=== PATIENT | female | born 2000 | race Caucasian/White ===

== ENCOUNTER 2023-01-05 13:19 | Inpatient (IN) ==
[2023-01-05 14:21] LABS: Basophils # (auto) 0.04 K/uL (0-0.2); Basophils % (auto) 0.4 %; Eosinophils % (auto) 0.9 %; Hematocrit (blood only) 36.6 % (37.0-47.0); Hemoglobin 12.2 g/dl (12.0-16.0); Immature Granulocytes # (auto) 0.05 K/uL (0.01-0.20); Immature Granulocytes % (auto) 0.4 %; Lymphocytes # (auto) 3.18 K/uL (1.2-3.4); Lymphocytes % (auto) 28.4 %; Mean Corpuscular Hemoglobin 27.9 pg (25.0-34.0); Mean Corpuscular Hgb Conc 33.3 g/dL (32.0-36.0); Mean Corpuscular Volume 83.8 fL (80.0-100.0); Mean Platelet Volume 9.9 fL (9.4-12.4); Monocytes # (auto) 0.75 K/uL (0.11-0.59); Monocytes % (auto) 6.7 %; Neutrophils # (auto) 7.08 K/uL (1.40-6.50); Neutrophils % (auto) 63.2 %; Platelet Count 431 K/uL (130-400); RDW Standard Deviation 43.3 fL (36.4-46.3); Red Blood Count 4.37 M/uL (4.20-5.40)
[2023-01-05 14:33] LABS: Albumin Level 4.4 gm/dl (3.4-5.0); Bilirubin,Total 0.4 mg/dl (0.2-1.0); Calcium 9.2 mg/dl (8.6-10.3); Potassium 3.7 mmol/L (3.5-5.1)
[2023-01-05 14:38] LABS: Acetaminophen < 3 ug/ml (10-30); Salicylate < 3.0 mg/dl (3.0-30)
[2023-01-05 14:39] LABS: Albumin Globulin Ratio 1.6 (0.9-2); BUN Creatinine Ratio 10.6 (10-20); Creatinine Clr Calc Pharmacy 123.4 ml/min; Est GFR (African American) 147.4 ml/min; Est GFR (Non-African American) 127.2 ml/min; Globulin 2.8 gm/dl (2.5-4.0); Total Protein 7.2 gm/dl (6.0-8.3)
--- NOTE | 2023-01-05 14:46 | Emergency Department Note ---
History of Present Illness General Chief complaint: Mental Health Evaluation Stated complaint: MHE Time Seen by Provider: 01/05/23 13:48 Source: patient and family (Mother at bedside) History of Present Illness Provider complaint: Mental health evaluation 22-year-old female presents emergency department for mental health evaluation. Patient states she suffers from depression and anxiety. Patient states she has been increasing depressed and having suicidal ideation. Patient states she has been having problems with her roommate and academic problems. Patient states she has been having increased panic attacks. Patient reports she is also sad about her grandfather being sick in the hospital. Patient states she has been thinking of killing yourself and thought about doing it the other day by driving her car off the road but then did not. Patient reports no drugs or alcohol. Patient states she is not sure if she was . Patient states she is not on any psychiatric medications at this time and has never been hospitalized for any psychiatric conditions. No access to any firearms. Home Medications Medication Instructions Recorded Confirmed Type norethindrone 1 mg-ethinyl 1 tab PO DAILY 08/10/22 01/05/23 History estradiol 20 mcg (21)-iron 75 mg (7) tablet (Junel FE 10/29 (28)) albuterol sulfate 90 mcg/actuation 2 puff inhalation DIRECTED PRN 01/05/23 01/05/23 History aerosol inhaler EXERCISE ASTHMA [id number] 0.4 mg-calcium 162 1 tab PO DAILY 01/05/23 01/05/23 History mg-iron 18 [id number] tablet Allergies Allergy/AdvReac Type Severity Reaction Status Date / Time benzyl alcohol Allergy Intermediate HIVES--IF Verified 01/05/23 14:40 IN [facility] oxybenzone Allergy Intermediate HIVES--IF Verified 01/05/23 14:40 IN [facility] paraben Allergy Intermediate HIVES--IF Verified 01/05/23 14:40 IN [facility] propolis (bee glue) Allergy Intermediate HIVES--IF Verified 01/05/23 14:40 IN [facility] AMERCHOL L101 Allergy Intermediate HIVES--IF Uncoded 01/05/23 14:40 IN [facility] D-PHENYLENEDIAMINE Allergy Intermediate HIVES--IF Uncoded 01/05/23 14:40 IN [facility] DISPERSE ORANGE 3 Allergy Intermediate HIVES--IF Uncoded 01/05/23 14:40 IN [facility] FRAGRANCE MIX Allergy Intermediate HIVES--IF Uncoded 01/05/23 14:40 IN [facility] YLANG YLANG OIL Allergy Intermediate HIVES--IF Uncoded 01/05/23 14:40 IN [facility] Past Med/Surg History Medical History Anxiety Depression No pertinent family history Surgical History No pertinent past surgical history Family History Other Family history non-contributory Social History Smoking Status: Never smoker Preferred Language: Turkmen Feels Safe at Home: Yes Gender Identity: Female Physical Exam Vital Signs Vital Signs - 24 hr 01/05/23 13:23 01/05/23 14:18 01/05/23 16:53 Temperature 36.6 C Temperature Source Temporal Artery Scan Pulse Rate 116 H Pulse Rate [Right Finger] 94 H 95 H Respiratory Rate 18 19 16 Respiratory Effort / Characteristics Non-Labored Spontaneous Respiratory Depth Normal Respiratory Pattern Regular Blood Pressure 130/89 Blood Pressure [Right Arm] 142/58 H 144/79 H Blood Pressure Mean 102 Blood Pressure Mean [Right Arm] 86 100 Blood Pressure Position Sitting Pulse Oximetry 98 100 98 Oxygen Delivery Method Room Air Room Air Room Air Sepsis Recent Fever Within 48 Hours No Sepsis New/Unexplained Change in Mental Status No Sepsis Action Taken by Nursing No Action Required Physical Exam GENERAL: oriented to person, place, and time. appears well-developed and well-nourished. HENT: Exam performed. - Head: Normocephalic and atraumatic. EYES: Conjunctivae and EOM are normal. Right eye exhibits no discharge. Left eye exhibits no discharge. No scleral icterus. NECK: Normal range of motion. Neck supple. No JVD present. CV: Normal rate, regular rhythm, normal heart sounds and intact distal pulses. There is no peripheral edema. Palpable radial pulses bue. PULM/CHEST: Effort normal and breath sounds normal. No respiratory distress. No stridor. no wheezes. no rales. ABD: The abdomen is soft. There is no tenderness. NEURO: Motor and sensation grossly intact. SKIN: Skin is warm and dry. He is not diaphoretic. PSYCH: Pressured speech. Patient reports suicidal ideation. Course Course 1348: The patient was evaluated in room B7. A complete history and physical exam was performed 1645: Patient medically cleared. Awaiting psychiatric evaluation and placement. 1840: Patient excepted to 3 S. Medical Decision Making Laboratory Data Attestation: I reviewed the patient's lab results. 01/05/23 14:00 01/05/23 14:00 Lab Results 01/05/23 01/05/23 01/05/23 Range/Units 14:00 14:00 14:00 WBC 11.20 H (4.8-10.8) K/ul RBC 4.37 (4.20-5.40) M/uL Hgb 12.2 (12.0-16.0) g/dl Hct 36.6 L (37.0-47.0) % MCV 83.8 (80.0-100.0) fL MCH 27.9 (25.0-34.0) pg MCHC 33.3 (32.0-36.0) g/dL RDW Std Deviation 43.3 (36.4-46.3) fL RDW Coeff of June 14.0 (11.5-14.5) % Plt Count 431 H (130-400) K/uL MPV 9.9 (9.4-12.4) fL Immature Gran % (Auto) 0.4 % Neut % (Auto) 63.2 % Lymph % (Auto) 28.4 % [place] % (Auto) 6.7 % Eos % (Auto) 0.9 % Baso % (Auto) 0.4 % Neut # (Auto) 7.08 H (1.40-6.50) K/uL Lymph # (Auto) 3.18 (1.2-3.4) K/uL [place] # (Auto) 0.75 H (0.11-0.59) K/uL Eos # (Auto) 0.10 (0-0.50) K/uL Baso # (Auto) 0.04 (0-0.2) K/uL Immature Gran # (Auto) 0.05 (0.01-0.20) K/uL Sodium 137 (136-145) mmol/L Potassium 3.7 (3.5-5.1) mmol/L Chloride 105 (98-107) mmol/L Carbon Dioxide 24 (21-32) mmol/L Anion Gap 8 (3-11) BUN 7 (6-23) mg/dl Creatinine 0.66 (0.6-1.2) mg/dl Est Cr Clr Drug Dosing 123.4 ml/min Est GFR ( Amer) 147.4 ml/min Est GFR (Non-Af Amer) 127.2 ml/min BUN/Creatinine Ratio 10.6 (10-20) Glucose 80 (70-99(Fasting)) mg/dl Calcium 9.2 (8.6-10.3) mg/dl Total Bilirubin 0.4 (0.2-1.0) mg/dl AST 13 (13-39) U/L ALT 11 (7-52) U/L Alkaline Phosphatase 34 (34-104) U/L Total Protein 7.2 (6.0-8.3) gm/dl Albumin 4.4 (3.4-5.0) gm/dl Globulin 2.8 (2.5-4.0) gm/dl Albumin/Globulin Ratio 1.6 (0.9-2) TSH 1.980 (0.300-4.500) uIu/ml Urine Color Urine Appearance (Clear) Urine pH (4.5-7.5) Ur Specific [place] (1.000-1.030) Urine Protein (Negative) Urine Glucose (UA) (Negative) Urine Ketones (Negative) Urine Blood (Negative) Urine Nitrite (Negative) Urine Bilirubin (Negative) Urine Urobilinogen (Negative) Ur Leukocyte Esterase (Negative) Urine WBC (Auto) Urine RBC (Auto) U Hyaline Cast (Auto) U Epithel Cells (Auto) Urine Bacteria (Auto) Ur Renal Epithelial Cell Urine Crystals Calcium Oxalate Crystal Uric Acid Crystals Triple Phos Crystals Other Crystals Amorphous Sediment Granular Casts Waxy Casts RBC Casts WBC Casts Other Casts Urine Mucus Urine Other Urine Trichomonas Urine Yeast Urine Sperm Ur Oval Fat Bodies POC Ur Test (NEG) Salicylates (3.0-30) mg/dl Urine Opiates Screen Ur Methadone, Qual Acetaminophen (10-30) ug/ml Urine Barbiturates Ur Phencyclidine (PCP) U Amphetamin/Meth Scrn MDMA (Ecstasy) Screen U Benzodiazepines Scrn Ur Cocaine Metabolite U Marijuana (THC) Screen Ethyl Alcohol mg/dL (<10.0) mg/dl SARS-CoV-2, RNA, NAAT (NEGATIVE) 01/05/23 01/05/23 01/05/23 Range/Units 14:00 14:00 14:13 WBC (4.8-10.8) K/ul RBC (4.20-5.40) M/uL Hgb (12.0-16.0) g/dl Hct (37.0-47.0) % MCV (80.0-100.0) fL MCH (25.0-34.0) pg MCHC (32.0-36.0) g/dL RDW Std Deviation (36.4-46.3) fL RDW Coeff of June (11.5-14.5) % Plt Count (130-400) K/uL MPV (9.4-12.4) fL Immature Gran % (Auto) % Neut % (Auto) % Lymph % (Auto) % [place] % (Auto) % Eos % (Auto) % Baso % (Auto) % Neut # (Auto) (1.40-6.50) K/uL Lymph # (Auto) (1.2-3.4) K/uL [place] # (Auto) (0.11-0.59) K/uL Eos # (Auto) (0-0.50) K/uL Baso # (Auto) (0-0.2) K/uL Immature Gran # (Auto) (0.01-0.20) K/uL Sodium (136-145) mmol/L Potassium (3.5-5.1) mmol/L Chloride (98-107) mmol/L Carbon Dioxide (21-32) mmol/L Anion Gap (3-11) BUN (6-23) mg/dl Creatinine (0.6-1.2) mg/dl Est Cr Clr Drug Dosing ml/min Est GFR ( Amer) ml/min Est GFR (Non-Af Amer) ml/min BUN/Creatinine Ratio (10-20) Glucose (70-99(Fasting)) mg/dl Calcium (8.6-10.3) mg/dl Total Bilirubin (0.2-1.0) mg/dl AST (13-39) U/L ALT (7-52) U/L Alkaline Phosphatase (34-104) U/L Total Protein (6.0-8.3) gm/dl Albumin (3.4-5.0) gm/dl Globulin (2.5-4.0) gm/dl Albumin/Globulin Ratio (0.9-2) TSH (0.300-4.500) uIu/ml Urine Color Urine Appearance (Clear) Urine pH (4.5-7.5) Ur Specific [place] (1.000-1.030) Urine Protein (Negative) Urine Glucose (UA) (Negative) Urine Ketones (Negative) Urine Blood (Negative) Urine Nitrite (Negative) Urine Bilirubin (Negative) Urine Urobilinogen (Negative) Ur Leukocyte Esterase (Negative) Urine WBC (Auto) Urine RBC (Auto) U Hyaline Cast (Auto) U Epithel Cells (Auto) Urine Bacteria (Auto) Ur Renal Epithelial Cell Urine Crystals Calcium Oxalate Crystal Uric Acid Crystals Triple Phos Crystals Other Crystals Amorphous Sediment Granular Casts Waxy Casts RBC Casts WBC Casts Other Casts Urine Mucus Urine Other Urine Trichomonas Urine Yeast Urine Sperm Ur Oval Fat Bodies POC Ur Test (NEG) Salicylates < 3.0 L (3.0-30) mg/dl Urine Opiates Screen Ur Methadone, Qual Acetaminophen < 3 L (10-30) ug/ml Urine Barbiturates Ur Phencyclidine (PCP) U Amphetamin/Meth Scrn MDMA (Ecstasy) Screen U Benzodiazepines Scrn Ur Cocaine Metabolite U Marijuana (THC) Screen Ethyl Alcohol mg/dL < 10.0 (<10.0) mg/dl SARS-CoV-2, RNA, NAAT NEGATIVE (NEGATIVE) 01/05/23 01/05/23 01/05/23 Range/Units 14:16 14:16 14:17 WBC (4.8-10.8) K/ul RBC (4.20-5.40) M/uL Hgb (12.0-16.0) g/dl Hct (37.0-47.0) % MCV (80.0-100.0) fL MCH (25.0-34.0) pg MCHC (32.0-36.0) g/dL RDW Std Deviation (36.4-46.3) fL RDW Coeff of June (11.5-14.5) % Plt Count (130-400) K/uL MPV (9.4-12.4) fL Immature Gran % (Auto) % Neut % (Auto) % Lymph % (Auto) % [place] % (Auto) % Eos % (Auto) % Baso % (Auto) % Neut # (Auto) (1.40-6.50) K/uL Lymph # (Auto) (1.2-3.4) K/uL [place] # (Auto) (0.11-0.59) K/uL Eos # (Auto) (0-0.50) K/uL Baso # (Auto) (0-0.2) K/uL Immature Gran # (Auto) (0.01-0.20) K/uL Sodium (136-145) mmol/L Potassium (3.5-5.1) mmol/L Chloride (98-107) mmol/L Carbon Dioxide (21-32) mmol/L Anion Gap (3-11) BUN (6-23) mg/dl Creatinine (0.6-1.2) mg/dl Est Cr Clr Drug Dosing ml/min Est GFR ( Amer) ml/min Est GFR (Non-Af Amer) ml/min BUN/Creatinine Ratio (10-20) Glucose (70-99(Fasting)) mg/dl Calcium (8.6-10.3) mg/dl Total Bilirubin (0.2-1.0) mg/dl AST (13-39) U/L ALT (7-52) U/L Alkaline Phosphatase (34-104) U/L Total Protein (6.0-8.3) gm/dl Albumin (3.4-5.0) gm/dl Globulin (2.5-4.0) gm/dl Albumin/Globulin Ratio (0.9-2) TSH (0.300-4.500) uIu/ml Urine Color Yellow Urine Appearance Cloudy A (Clear) Urine pH 5.0 (4.5-7.5) Ur Specific [place] 1.023 (1.000-1.030) Urine Protein Trace H (Negative) Urine Glucose (UA) Negative (Negative) Urine Ketones Trace H (Negative) Urine Blood Negative (Negative) Urine Nitrite Negative (Negative) Urine Bilirubin Negative (Negative) Urine Urobilinogen Negative (Negative) Ur Leukocyte Esterase 1+ H (Negative) Urine WBC (Auto) TNP Urine RBC (Auto) TNP U Hyaline Cast (Auto) TNP U Epithel Cells (Auto) TNP Urine Bacteria (Auto) TNP Ur Renal Epithelial Cell TNP Urine Crystals TNP Calcium Oxalate Crystal TNP Uric Acid Crystals TNP Triple Phos Crystals TNP Other Crystals TNP Amorphous Sediment TNP Granular Casts TNP Waxy Casts TNP RBC Casts TNP WBC Casts TNP Other Casts TNP Urine Mucus TNP Urine Other TNP Urine Trichomonas TNP Urine Yeast TNP Urine Sperm TNP Ur Oval Fat Bodies TNP POC Ur Test NEG (NEG) Salicylates (3.0-30) mg/dl Urine Opiates Screen Cancelled Ur Methadone, Qual Cancelled Acetaminophen (10-30) ug/ml Urine Barbiturates Cancelled Ur Phencyclidine (PCP) Cancelled U Amphetamin/Meth Scrn Cancelled MDMA (Ecstasy) Screen Cancelled U Benzodiazepines Scrn Cancelled Ur Cocaine Metabolite Cancelled U Marijuana (THC) Screen Cancelled Ethyl Alcohol mg/dL (<10.0) mg/dl SARS-CoV-2, RNA, NAAT (NEGATIVE) 01/05/23 Range/Units 16:36 WBC (4.8-10.8) K/ul RBC (4.20-5.40) M/uL Hgb (12.0-16.0) g/dl Hct (37.0-47.0) % MCV (80.0-100.0) fL MCH (25.0-34.0) pg MCHC (32.0-36.0) g/dL RDW Std Deviation (36.4-46.3) fL RDW Coeff of June (11.5-14.5) % Plt Count (130-400) K/uL MPV (9.4-12.4) fL Immature Gran % (Auto) % Neut % (Auto) % Lymph % (Auto) % [place] % (Auto) % Eos % (Auto) % Baso % (Auto) % Neut # (Auto) (1.40-6.50) K/uL Lymph # (Auto) (1.2-3.4) K/uL [place] # (Auto) (0.11-0.59) K/uL Eos # (Auto) (0-0.50) K/uL Baso # (Auto) (0-0.2) K/uL Immature Gran # (Auto) (0.01-0.20) K/uL Sodium (136-145) mmol/L Potassium (3.5-5.1) mmol/L Chloride (98-107) mmol/L Carbon Dioxide (21-32) mmol/L Anion Gap (3-11) BUN (6-23) mg/dl Creatinine (0.6-1.2) mg/dl Est Cr Clr Drug Dosing ml/min Est GFR ( Amer) ml/min Est GFR (Non-Af Amer) ml/min BUN/Creatinine Ratio (10-20) Glucose (70-99(Fasting)) mg/dl Calcium (8.6-10.3) mg/dl Total Bilirubin (0.2-1.0) mg/dl AST (13-39) U/L ALT (7-52) U/L Alkaline Phosphatase (34-104) U/L Total Protein (6.0-8.3) gm/dl Albumin (3.4-5.0) gm/dl Globulin (2.5-4.0) gm/dl Albumin/Globulin Ratio (0.9-2) TSH (0.300-4.500) uIu/ml Urine Color Urine Appearance (Clear) Urine pH (4.5-7.5) Ur Specific [place] (1.000-1.030) Urine Protein (Negative) Urine Glucose (UA) (Negative) Urine Ketones (Negative) Urine Blood (Negative) Urine Nitrite (Negative) Urine Bilirubin (Negative) Urine Urobilinogen (Negative) Ur Leukocyte Esterase (Negative) Urine WBC (Auto) Urine RBC (Auto) U Hyaline Cast (Auto) U Epithel Cells (Auto) Urine Bacteria (Auto) Ur Renal Epithelial Cell Urine Crystals Calcium Oxalate Crystal Uric Acid Crystals Triple Phos Crystals Other Crystals Amorphous Sediment Granular Casts Waxy Casts RBC Casts WBC Casts Other Casts Urine Mucus Urine Other Urine Trichomonas Urine Yeast Urine Sperm Ur Oval Fat Bodies POC Ur Test (NEG) Salicylates (3.0-30) mg/dl Urine Opiates Screen Neg Ur Methadone, Qual Neg Acetaminophen (10-30) ug/ml Urine Barbiturates Neg Ur Phencyclidine (PCP) Neg U Amphetamin/Meth Scrn Neg MDMA (Ecstasy) Screen Neg U Benzodiazepines Scrn Neg Ur Cocaine Metabolite Neg U Marijuana (THC) Screen Neg Ethyl Alcohol mg/dL (<10.0) mg/dl SARS-CoV-2, RNA, NAAT (NEGATIVE) MDM Narrative 1348: The patient was evaluated in room B7. A complete history and physical exam was performed 1645: Patient medically cleared. Awaiting psychiatric evaluation and placement. 1841: Patient excepted to 3 S. Impression & Plan Depression with suicidal ideation Discharge Plan Visit Data Chief Complaint: Mental Health Evaluation Stated Complaint: MHE ED Provider: Moisés Hylton Discharge Problem: Depression with suicidal ideation Patient Disposition: Admitted As Inpatient Forms Stand Alone Forms: [facility], Suicide Prevention Resources Prescriptions Prescriptions: No Action albuterol sulfate 90 mcg/actuation Hfa Aerosol Inhaler 2 puff INHALATION DIRECTED PRN (Reason: EXERCISE ASTHMA) Centrum 0.4-162-18 mg Tablet 1 tab PO DAILY norethindrone-e.estradiol-iron [June FE 10/29 (28)] 1 mg-20 mcg (21)/75 mg (7) tablet 1 tab PO DAILY Referrals Referrals: [facility] [Primary Care Provider] -
[2023-01-05 15:21] LABS: Appearance Urine Cloudy (Clear); Bilirubin Urine Negative (Negative); Blood Urine Negative (Negative); Color Urine Yellow; Glucose Urine UA Negative (Negative); Ketones Urine Trace (Negative); Leukocyte Esterase Urine 1+ (Negative); Nitrite Urine Negative (Negative); Protein Urine Trace (Negative); Specific Gravity Urine 1.023 (1.000-1.030); Urobilinogen Urine Negative (Negative)
[2023-01-05 17:25] LABS: Amphetamines+Metham, Urine Neg (Neg); Barbiturates, Urine Neg (Neg); Benzodiazepine, Urine Neg (Neg); Cocaine, Urine Neg (Neg); MDMA (Ecstacy), Urine Neg (Neg); Methadone, Urine Neg (Neg); Opiate, Urine Neg (Neg); Phencyclidine, Urine Neg (Neg)
[2023-01-05] MEDS ORDERED: ACETAMINOPHEN 325 MG TAB PO PRN (18:39)
[2023-01-05] MEDS ORDERED: MAGNESIUM HYDROXIDE SUSP 30 ML UDC PO PRN (18:39)
[2023-01-05] MEDS ORDERED: SODIUM CHLORIDE 0.65% NA SOLN 45 ML (OCEAN) PRN (18:39)
[2023-01-05] MEDS ORDERED: BISMUTH SUBSALICYLATE LIQD 236 ML PO PRN (18:39)
[2023-01-05] MEDS ORDERED: ALUMINUM/MAGNESIUM SUSP 30 ML UDC PO PRN (18:39)
[2023-01-05] MEDS ORDERED: hydrOXYzine HCl 25 MG TAB PO PRN ×2 (18:39)
[2023-01-06] MEDS ORDERED: JUNEL~ORDER AWAITING ACTION SCH (12:00)
[2023-01-06] MEDS ORDERED: PANTOprazole 40 MG TAB PO SCH (12:45)
[2023-01-06] MEDS: ARIPiprazole 5 MG TAB PO SCH (12:51)
[2023-01-06] MEDS: PATIENT'S OWN ORAL CONTRACEPTIVE PO SCH (12:52)
[2023-01-06] MEDS: LANSOPRAZOLE 30 MG PO SCH (13:26)
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
[2023-01-06] MEDS ORDERED: ONDANSETRON 4 MG OD TAB PO PRN (20:24)
--- NOTE | 2023-01-06 21:43 | Electrocardiogram Report ---
Test Reason : Blood Pressure : / mmHG Vent. Rate : 094 BPM Atrial Rate : 094 BPM P-R Int : 166 ms QRS Dur : 088 ms QT Int : 328 ms P-R-T Axes : 078 054 054 degrees QTc Int : 410 ms Poor data quality, interpretation may be adversely affected Normal sinus rhythm with sinus arrhythmia Cannot rule out Anterior infarct , age undetermined Incomplete right bundle branch block Abnormal ECG No previous ECGs available Confirmed by Yovani Otero ([id number]) on 01/06/2023 9:43:18 PM Referred By: REFERRED SELF Confirmed By:Yovani Otero
[2023-01-07] MEDS: ARIPiprazole 5 MG TAB PO SCH (10:10)
[2023-01-07] MEDS: LANSOPRAZOLE 30 MG PO SCH (10:11)
[2023-01-07] MEDS: PATIENT'S OWN ORAL CONTRACEPTIVE PO SCH (10:14)
--- NOTE | 2023-01-07 14:19 | Psychiatric Progress Note ---
Date of Service January 07, 2023 Impression / Recommendations Impression 22 y/o F with history of manic-like episode in the past (too brief to meet criteria for manic episode) who presents with suicidal thoughts, racing thoughts, grandiosity. 01/07/2023: Pt reports the aripiprazole 5 mg she got yesterday made her feel very nauseated and confused. She vomited several times. She then was awake multiple times through the night, though apparently only between checks by staff. However, she also reports "feeling lots more stable" with no more racing thoughts. She does appear much calmer and more appropriate and her speech is no longer pressured. (1) Bipolar I disorder with mixed features: Present on Admission?: Yes Plan The patient was admitted to the [facility] ([facility] mental health unit) on q15 min checks (behavioral with suicide precautions) for safety. The patient will participate in group, recreational, and milieu therapies and will be offered additional individual and family sessions as clinically appropriate. Risks and benefits of, and alternatives to, the use of aripiprazole (Abilify) for mood were reviewed. This included but was not limited to issues known pote ntially to be associated with use of such medication, especially at high doses or with longer use, including sedation, weight gain, problems with glucose metabolism including Type II diabetes, problems with lipid metabolism, cardiac conduction problems, or rarely involuntary movements, parkinsonian symptoms, or even life-threatening Neuroleptic Malignant Syndrome. Discussed the need for periodic monitoring of fasting glucose or Hemoglobin A1c and lipid panel, and these were ordered for baseline monitoring. The patient agreed to start a trial of aripiprazole. 01/07/2023: * reduce aripiprazole to 2 mg QHS * baseline glycohemoglogin and fasting lipids in AM * lamotrigine 25 mg daily, titrate to 50 mg daily after 2 weeks, then after 2 more weeks to 100 mg daily * encourage use of ordered hydroxyzine for sleep 01/06/2023: * start aripiprazole 5 mg QHS Inventory Assets Strengths: has local supports,voluntary, intelligent Needs: safety and stabilization, medication adjustment, additional coping skills, increased outpatient services, case management Suicide Risk Level Suicide Risk Level: Moderate (q15 min suicide checks) Suicide Risk Level Comments: denies suicidal thoughts at this time Risk Factors Assessment : Yes Do You Have Access To A Gun?: No Health Problems: Yes Substance Use Disorders: No Previous Attempt: No Family History of Suicide: No Previous Psychiatric Hospitalization: No Protective Factors Assessment Employed: Yes ([employer]) Interval History Identifying Information YANCY DUGAN is a 22-year-old F who currently lives in [place] alone in an apartment since her roommate moved out, has a history of bipolar disorder, and was admitted on 01/05/23 18:40 on a 201 voluntary commitment for suicidal thoughts Chief Complaint "That Abilify messed me up yesterday". Review of Systems Sleep Information Total Hours of Sleep: 7 Sleep Comments: pt on q-15 minute checks Meal Information Percent Meal Consumed - Breakfast: 50 Percent Meal Consumed - Lunch: 80 Percent Meal Consumed - Dinner: 0 Subjective Subjective Patient was seen & assessed and interval progress reviewed with treatment team Physical Exam Psychiatric Orientation: alert, oriented to person, oriented to place and oriented to time Apperance: appropriately dressed and appropriately groomed Eye Contact: + fair eye contact Motor Behavior: no abnormal motor movements; no psychomotor agitation Speech: normal rate/rhythm/volume of speech; no pressured speech Affect: euthymic affect; no elated affect Thought Process: goal directed thought process and linear/logical thought process; no flight of ideas Suicidal Thoughts: denies suicidal thoughts, denies suicidal plan and denies suicidal intent Homicidal Thoughts: denies homicidal thoughts Hallucinations: no auditory hallucinations and no visual hallucinations Cognition: recent memory grossly intact, remote memory grossly intact, attention grossly intact and language grossly intact Estimated Intelligence: average estimated intelligence Insight: + limited insight Judgment: + limited judgement Vital Signs (Past 24 Hours) Last Vital Signs Temp 37 C 01/07/23 06:39 Pulse 112 H 01/07/23 06:40 Resp 16 01/07/23 06:39 BP 113/75 01/07/23 06:40 Pulse Ox 94 01/06/23 17:51 O2 Del Method Room Air 01/06/23 17:51 Results & Data ([facility]) Current Inpatient Medications Current Inpatient Medications: Current Inpatient Medications Acetaminophen (Acetaminophen 325 Mg Tab) 650 mg PO Q4H PRN PRN Reason: Headache or Minor Fever Stop: 02/04/23 18:38 Al Hydrox/Mg Hydrox/Simethicone (Aluminum/Magnesium Susp 30 Ml Udc) 30 ml PO Q4H PRN PRN Reason: GI Upset Stop: 02/04/23 18:38 Aripiprazole (Aripiprazole 5 Mg Tab) 5 mg PO QAM MURTAZA Stop: 02/05/23 11:44 Last Admin: 01/07/23 10:10 Dose: 5 mg Bismuth Subsalicylate (Bismuth Subsalicylate Liqd 236 Ml) 15 ml PO PRN PRN PRN Reason: Loose Stool Stop: 02/04/23 18:38 Hydroxyzine HCl (Hydroxyzine Hcl 25 Mg Tab) 50 mg PO HSZ PRN PRN Reason: Insomnia Stop: 02/04/23 18:38 Hydroxyzine HCl (Hydroxyzine Hcl 25 Mg Tab) 25 mg PO Q4H PRN PRN Reason: Anxiety Stop: 02/04/23 18:38 Magnesium Hydroxide (Magnesium Hydroxide Susp 30 Ml Udc) 30 ml PO DAILY PRN PRN Reason: Constipation Stop: 02/04/23 18:38 Miscellaneous (Patient's Own Oral Contraceptive) 1 each PO DAILY MURTAZA Stop: 02/07/23 08:[address] 30mg (Capsule) 1 each PO DAILY MURTAZA Stop: 02/05/23 12:59 Last Admin: 01/07/23 10:11 Dose: 30 mg Ondansetron HCl (Ondansetron 4 Mg Od Tab) 4 mg PO Q6H PRN PRN Reason: Nausea Stop: 02/05/23 20:23 Last Admin: 01/06/23 22:25 Dose: 4 mg Sodium Chloride (Sodium Chloride 0.65% Na Soln 45 Ml ([place])) 1 - 2 sprays NA PRN PRN PRN Reason: Nasal Dryness/Congestion Stop: 02/04/23 18:38 Mental Health & Subst Abuse Tx Psychiatrist Name of Psychiatrist: Ángel Guillen Psychiatrist's Date Of Appointment With Psychiatric Provider: 01/14/23 Time of Appointment with Psychiatrist: 10:15 AM Psychiatric Appointment Comment: [address], [place] [address] Therapist Name of Therapist: Noelle Lozano Therapist's Date of Therapist Appointment: 01/11/2023 Time of Therapist Appointment: 10am Therapy Appointment Comment: telehealth Web Services Professional Name of Web Services Professional: [employer] [facility] Elisa Santana Phone Number for Web Services Professional: [phone] Case Management Appointment Comment: zoom link will be sent to [facility] email Post Discharge Appointments Primary Care Physician Name Of Family Doctor/PCP: MELANIA Almendarez PA-C Primary Care Date of Future Appointment with PCP: 01/18/23 Time of Appointment with PCP: 10:40 AM Provider Appointment Comment: [facility], [place], [place] Contact Information Discharge Discharge Address: [address] [place] [address], [facility], [place] [address]
[2023-01-08 07:38] LABS: Chol HDL Ratio 3.6 (0-5)
[2023-01-08] MEDS: ARIPiprazole 5 MG TAB PO SCH ×2 (09:19→09:24)
[2023-01-08] MEDS: LANSOPRAZOLE 30 MG PO SCH (09:20)
[2023-01-08] MEDS: PATIENT'S OWN ORAL CONTRACEPTIVE PO SCH (09:21)
[2023-01-08 10:25] LABS: Estimated Average Glucose 100 mg/dl; Hemoglobin A1C 5.1 % (4.5-5.6)
--- NOTE | 2023-01-08 12:34 | Psychiatric Progress Note ---
Date of Service January 08, 2023 Impression / Recommendations Impression 22 y/o F with history of hypomanic episode in the past (too brief to meet criteria for manic episode) who presents with suicidal thoughts, racing thoughts, grandiosity. Diagnostically felt to be most consistent with BPAD type II. 01/08/2023: Today feels her mood is stable, tolerating the abilify yesterday but still felt it caused some stomach side effects like anorexia. Prefers to switch to nighttime dosing to see if this helps. Consents to continuing with 5mg dose versus trial of 2.5mg or 2mg. She also remains interested in starting lamictal for mood stabilization. No evidence for moustapha today and sleep is improving, will continue to monitor to ensure ongoing progress. Discussed factors leading to SI with plan prior to admission, she feels her mood is improving due to finding out that she has someone who is willing to write her a letter of recommendation. Discussed risks, benefits and alternatives. Patient would like to start and consented to lamictal for mood stabilization and trazodone as needed for insomnia. Reviewed side effects including but not limited to: potential for fatal rash and need to seek immediate medical care if she developed a rash and need to talk with her doctor before restarting if she ever missed more than 3 days of the lanictal, reviewed the importance of following the titration schedule and not increasing the dose without talking with her provider with lamictal. Reviewed side effects including but not limited to: sedation, increased appetite with trazodone. Reviewed and discussed fasting lipid pane, HbA1c and glucose which were all normal. (1) Bipolar 2 disorder: Plan 01/08/2023: Switch to abilify 5mg HS dosing, start lamictal 25mg HS. Family meeting to be held today. 01/07/2023: * baseline glycohemoglogin and fasting lipids in AM * encourage use of ordered hydroxyzine for sleep 01/06/2023: * start aripiprazole 5 mg daily * The patient was admitted to the [facility] ([facility] unit) on q15 min checks (behavioral with suicide precautions) for safety. The patient will participate in group, recreational, and milieu therapies and will be offered additional individual and family sessions as clinically appropriate. Inventory Assets Strengths: has local supports,voluntary, intelligent Needs: safety and stabilization, medication adjustment, additional coping skills, increased outpatient services, case management Suicide Risk Level Suicide Risk Level: Moderate (q15 min suicide checks) (mood improving, denies SI) Risk Factors Assessment : Yes Do You Have Access To A Gun?: No Health Problems: Yes Substance Use Disorders: No Previous Attempt: No Family History of Suicide: No Previous Psychiatric Hospitalization: No Protective Factors Assessment Employed: Yes ([employer]) Interval History Identifying Information YANCY DUGAN is a 22-year-old F who currently lives in [place] alone in an apartment since her roommate moved out, has a history of bipolar disorder, and was admitted on 01/05/23 18:40 on a 201 voluntary commitment for suicidal thoughts Chief Complaint "I feel very stabilized". Review of Systems Sleep Information Total Hours of Sleep: 8 Sleep Comments: pt on q-15 minute checks Meal Information Percent Meal Consumed - Breakfast: 75 Percent Meal Consumed - Lunch: 80 Percent Meal Consumed - Dinner: 70 Subjective Subjective Patient was seen & assessed and interval progress reviewed with treatment team nursing and social work. Andrew felt she did well with the abilify yesterday but prefers to take it at night due to potential GI symptoms. Slept better last night but still with multiple awakenings, smokes cannabis at home to help with sleep and likes the effect. Reviewed history of periods of elevated mood, most recently in July, and then periods of depression. She felt as though she was approaching a possible episode of hypomania the day she came into the hospital but feels more stable now. Agreeable to starting lamictal with goal of eventually using this for mood stabilization once at an effective dose. Denies SI. Wants to return to her off-campus apartment and stay at [employer] for the rest of the semester. Physical Exam Psychiatric Orientation: alert, oriented x 3 and cooperative Apperance: appropriately dressed and appropriately groomed Eye Contact: good eye contact Motor Behavior: no abnormal motor movements; no psychomotor agitation Speech: normal rate/rhythm/volume of speech; no pressured speech Affect: euthymic affect; no elated affect Thought Process: goal directed thought process and linear/logical thought process; no flight of ideas Suicidal Thoughts: denies suicidal thoughts, denies suicidal plan and denies suicidal intent Homicidal Thoughts: denies homicidal thoughts Hallucinations: no auditory hallucinations and no visual hallucinations Cognition: recent memory grossly intact, remote memory grossly intact, attention grossly intact and language grossly intact Estimated Intelligence: average estimated intelligence Insight: + fair insight Judgment: + limited judgement Vital Signs (Past 24 Hours) Last Vital Signs Temp 37.1 C 01/08/23 06:00 Pulse 80 01/08/23 06:00 Resp 16 01/08/23 06:00 BP 108/70 01/08/23 06:18 Pulse Ox 98 01/08/23 06:00 O2 Del Method Room Air 01/08/23 06:00 Results & Data ([facility]) Laboratory Results Laboratory Results - last 24 hr 01/08/23 01/08/23 07:04 07:04 Estimat Average Glucose 100 Hemoglobin A1c 5.1 Triglycerides 89 Cholesterol 170 LDL Cholesterol, Calc 105 VLDL Cholesterol, Calc 18 HDL Cholesterol 47 Cholesterol/HDL Ratio 3.6 Current Inpatient Medications Current Inpatient Medications: Current Inpatient Medications Acetaminophen (Acetaminophen 325 Mg Tab) 650 mg PO Q4H PRN PRN Reason: Headache or Minor Fever Stop: 02/04/23 18:38 Al Hydrox/Mg Hydrox/Simethicone (Aluminum/Magnesium Susp 30 Ml Udc) 30 ml PO Q4H PRN PRN Reason: GI Upset Stop: 02/04/23 18:38 Aripiprazole (Aripiprazole 5 Mg Tab) 5 mg PO QPM MURTAZA Stop: 02/07/23 20:59 Bismuth Subsalicylate (Bismuth Subsalicylate Liqd 236 Ml) 15 ml PO PRN PRN PRN Reason: Loose Stool Stop: 02/04/23 18:38 Hydroxyzine HCl (Hydroxyzine Hcl 25 Mg Tab) 50 mg PO HSZ PRN PRN Reason: Insomnia Stop: 02/04/23 18:38 Last Admin: 01/07/23 21:43 Dose: 50 mg Hydroxyzine HCl (Hydroxyzine Hcl 25 Mg Tab) 25 mg PO Q4H PRN PRN Reason: Anxiety Stop: 02/04/23 18:38 Magnesium Hydroxide (Magnesium Hydroxide Susp 30 Ml Udc) 30 ml PO DAILY PRN PRN Reason: Constipation Stop: 02/04/23 18:38 Miscellaneous (Patient's Own Oral Contraceptive) 1 each PO DAILY MURTAZA Stop: 02/07/23 08:59 Last Admin: 01/08/23 09:21 Dose: [address] 30mg (Capsule) 1 each PO DAILY MURTAZA Stop: 02/05/23 12:59 Last Admin: 01/08/23 09:20 Dose: 30 mg Ondansetron HCl (Ondansetron 4 Mg Od Tab) 4 mg PO Q6H PRN PRN Reason: Nausea Stop: 02/05/23 20:23 Last Admin: 01/06/23 22:25 Dose: 4 mg Sodium Chloride (Sodium Chloride 0.65% Na Soln 45 Ml ([place])) 1 - 2 sprays NA PRN PRN PRN Reason: Nasal Dryness/Congestion Stop: 02/04/23 18:38 Mental Health & Subst Abuse Tx Psychiatrist Name of Psychiatrist: Ángel Guillen Psychiatrist's Date Of Appointment With Psychiatric Provider: 01/14/23 Time of Appointment with Psychiatrist: 10:15 AM Psychiatric Appointment Comment: [address], [place] [address] Therapist Name of Therapist: [facility] Therapist's Date of Therapist Appointment: 01/11/2023 Time of Therapist Appointment: 10am Therapy Appointment Comment: telehealth District Adviser Name of District Adviser: Student [facility] Osvaldo Santana Phone Number for District Adviser: [phone] Case Management Appointment Comment: zoom link will be sent to [employer] email Post Discharge Appointments Primary Care Physician Name Of Family Doctor/PCP: MELANIA Almendarez PA-C Primary Care Date of Future Appointment with PCP: 01/18/23 Time of Appointment with PCP: 10:40 AM Provider Appointment Comment: [facility] [place] Contact Information Discharge Discharge Address: [address], [place] [address]
[2023-01-08] MEDS ORDERED: traZODone HCL 50 MG TAB PO PRN (12:39)
[2023-01-08] MEDS ORDERED: ARIPiprazole 5 MG TAB PO SCH (21:00)
[2023-01-08] MEDS ORDERED: lamoTRIgine 25 MG TAB PO SCH (22:00)
[2023-01-09] MEDS: PATIENT'S OWN ORAL CONTRACEPTIVE PO SCH (08:37)
[2023-01-09] MEDS: LANSOPRAZOLE 30 MG PO SCH (08:37)
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
== END 2023-01-09 10:55 | disposition home or self-care (01) | DRG 885 ==
LOC: ED 13:19 → SUATTDRO 18:40 → 3S 18:40